=== PATIENT | male | born 1995 | race Caucasian/White ===

== ENCOUNTER 2021-03-27 19:37 | Emergency (ER) | payer BC, SELFPAY ==
--- NOTE | ~2021-03-27 | XR_ITS ---
EXAMINATION: XR CHEST CLINICAL INFORMATION: 25-year-old male with chest pain. COMPARISON: None TECHNIQUE: 2 views of the chest were obtained. FINDINGS: Cardiac silhouette is normal in size. The lungs are well aerated. There is no lobar consolidation. No pleural effusion or pneumothorax. No acute osseous abnormality. XR/XR chest 2V IMPRESSION: No acute pulmonary pathology.
--- NOTE | 2021-03-27 19:49 | ECG_ITS ---
Test Reason : CHEST PAIN Blood Pressure : / mmHG Vent. Rate : 066 BPM Atrial Rate : 066 BPM P-R Int : 116 ms QRS Dur : 114 ms QT Int : 396 ms P-R-T Axes : 058 087 061 degrees QTc Int : 415 ms Normal sinus rhythm with sinus arrhythmia Incomplete right bundle branch block Borderline ECG No previous ECGs available Referred By: Generic ED Physician Electronically Signed By:Augustus Fry
[2021-03-27 21:03] VITALS: BP 123/59; PULSE 69; RESP 18; TEMP 37.1; O2SAT 100; BMI 21.7
[2021-03-27 21:39] LABS: Basophils Percent Auto 0.4 % (0-2); Eosinophils Percent Auto 0.5 % (0-4); Hematocrit 45.3 % (42-52); Hemoglobin 15.3 g/dl (14.0-18.0); Imm Gran Abs Auto 0.03 X10*3/uL (0.00-0.03); Imm Gran Pct Auto 0.4 % (0.0-0.4); Lymphocytes Absolute Auto 2.1 X10*3/uL (1.2-4.9); Lymphocytes Percent Auto 25.3 % (20-40); MANUAL DIFF FLAG NO; Mean Corpuscular HGB Conc 33.8 g/dl (31.0-36.0); Mean Corpuscular Hemoglobin 30.3 pg (27.0-33.0); Mean Corpuscular Volume 89.7 fL (80-98); Mean Platelet Volume 9.7 fL (9.4-12.4); Monocytes Absolute Auto 0.7 X10*3/uL (0.1-1.2); Neutrophils Absolute Auto 5.4 X10*3/uL (2.0-8.3); Neutrophils Percent Auto 65.4 % (45-73); Platelet Count 246 X10*3/uL (160-400); Red Blood Count 5.05 X10*6/uL (4.60-5.80); Red Cell Distribution Width 12.3 % (11.0-16.0); White Blood Count 8.3 X10*3/uL (4.8-10.8)
[2021-03-27 21:59] LABS: Anion Gap 14 (12-20); Blood Urea Nitrogen 19 mg/dL (9-16); Calcium 9.5 mg/dL (8.4-10.2); Carbon Dioxide 25 mmol/L (22-29); Chloride 108 mmol/L (96-108); Creatinine Clr Calc Pharmacy 111.4; Estimated Glomerular Filt Rate > 60; Glucose Random 83 mg/dL (60-115); Potassium 3.7 mmol/L (3.3-5.1); Sodium 143 mmol/L (135-145)
[2021-03-27 22:07] LABS: Troponin-I High Sensitivity < 3.5 ng/L (<3.5-35.0)
--- NOTE | 2021-03-27 22:34 | ED_ITS ---
HPI - Chest Pain General Chief Complaint: Chest Pain Stated Complaint: chest pain Time Seen by Provider: 03/27/21 22:34 Source: patient Mode of arrival: ambulatory History of Present Illness HPI narrative: This is a 25-year-old male without significant past medical history who presents with 1 week of intermittent sharp left-sided chest pain that comes and goes rapidly and is not associated with deep inspiration, changes in position, movement. Patient denies any fevers, chills, sore throat, cough, smoking history, recent travel. Related Data Allergies Allergy/AdvReac Type Severity Reaction Status Date / Time No Known Allergies Allergy Verified 03/27/21 21:02 Review of Systems Review of Systems: Pertinent positives and negatives as stated in HPI 10 point review of systems otherwise negative. PMFSH Past Medical History Source: nursing notes reviewed Medical History Patient denies medical problems Social History Social History Advance Directives: No Physical Exam Vital Signs: Vital Signs: Last Vital Signs Temp 98.8 F 03/27/21 21:03 Pulse 69 03/27/21 21:03 Resp 18 03/27/21 21:03 BP 123/59 L 03/27/21 21:03 Pulse Ox 100 03/27/21 21:03 Body Mass Index 21.7 VITAL SIGNS: Reviewed. GENERAL: Well developed, well nourished, in no acute distress. HEAD: Normocephalic/atraumatic EYES: PERRLA, EOMIal OROPHARYNX: no oral lesions noted, posterior pharynx clear NECK: Supple, no adenopathy LUNGS: Normal breath sounds. No adventitious sounds or accessory muscle use. SpO2<100> CARDIOVASCULAR: Regular rate and rhythm without noted murmurs ABDOMEN: Soft, non-tender, non-distended with bowel sounds. NEUROLOGIC: Alert and oriented x 4. Course Course Course Narrative: 25-year-old male with history and clinical presentation consistent with likely costochondritis, muscle strain and review of all investigations negative for any acute findings. Results were discussed with patient bedside and he was discharged in stable condition. MDM - Chest Pain Lab Data Result diagrams: 03/27/21 21:33 03/27/21 21:33 Labs: Lab Results 03/27/21 03/27/2103/27/21 Range/Units 21:33 21:33 21:33 WBC 8.3 (4.8-10.8) X10*3/uL RBC 5.05 (4.60-5.80) X10*6/uL Hgb 15.3 (14.0-18.0) g/dl Hct 45.3 (42-52) % MCV 89.7 (80-98) fL MCH 30.3 (27.0-33.0) pg MCHC 33.8 (31.0-36.0) g/dl RDW 12.3 (11.0-16.0) % Plt Count 246 (160-400) X10*3/uL MPV 9.7 (9.4-12.4) fL Immature Gran % (Auto) 0.4 (0.0-0.4) % Neut % (Auto) 65.4 (45-73) % Lymph % (Auto) 25.3 (20-40) % [place] % (Auto) 8.0 (2-11) % Eos % (Auto) 0.5 (0-4) % Baso % (Auto) 0.4 (0-2) % Lymph # (Auto) 2.1 (1.2-4.9) X10*3/uL [place] # (Auto) 0.7 (0.1-1.2) X10*3/uL Eos # (Auto) 0.0 (0.0-0.4) X10*3/uL Baso # (Auto) 0.0 (0.0-0.2) X10*3/uL Abs Immat Gran (auto) 0.03 (0.00-0.03) X10*3/uL Absolute Neuts (auto) 5.4 (2.0-8.3) X10*3/uL Absolute Nucleated RBC 0.000 (0.0-0.012) X10*3/uL Nucleated RBC % (auto) 0.0 (0.0-0.2) /100WBC Sodium 143 (135-145) mmol/L Potassium 3.7 (3.3-5.1) mmol/L Chloride 108 (96-108) mmol/L Carbon Dioxide 25 (22-29) mmol/L Anion Gap 14 (12-20) BUN 19 H (9-16) mg/dL Creatinine 1.04 (0.5-1.4) mg/dL Estim Creat Clear Calc 111.4 Estimated GFR > 60 Random Glucose 83 (60-115) mg/dL Calcium 9.5 (8.4-10.2) mg/dL Troponin I High Sens < 3.5 (<3.5-35.0) ng/L ECG Data ECG #1: Attestation: I personally reviewed and interpreted this ECG as follows: Prior ECG tracings: not available for review Interpretation: Normal sinus rhythm, HR-66, no evidence of acute ischemia, incomplete RBBB, NV/QTC are within normal limits. Discharge Plan Discharge Clinical Impression: Atypical chest pain, Acute costochondritis, Muscle strain of anterior chest wall Patient Disposition: Home, Self-Care Instructions: Costochondritis (ED) Additional Instructions: Recommend using [id number] Tylenol/ibuprofen as needed for symptom relief. Follow-up with your primary care provider after you establish 1 within 2-3 days for further re-evaluation and outpatient management. Do not hesitate to return to the emergency room if you develop worsening symptoms. Referrals: Physician,None [Primary Care Provider] - 2 days
[2021-03-27 23:43] VITALS: BP 109/76; PULSE 75; RESP 17; O2SAT 100
[2021-03-27] MEDS: Ketorolac Tromethamine 15 MG/ML VIAL IM (23:49)
[2021-03-27] MEDS: Acetaminophen 325 MG TABLET 975 MG PO (23:49)
[2021-03-27] MEDS: Lidocaine 4 % Patch ADH..PATCH 1 PATCH TRANSDERMA (23:50)
== END 2021-03-27 23:56 | disposition home or self-care (01) ==
PROVIDERS: Emergency Provider Student in an Organized Health Care Education/Training Program
DX: R07.89 Other chest pain (principal); M94.0 Chondrocostal junction syndrome [Tietze]
CPT/HCPCS: 36415; 71046; 80048; 84484; 85025; 93005; 96372; 99284; J1885

== ENCOUNTER 2021-04-27 00:44 | Emergency (ER) | payer BC, SELFPAY ==
[2021-04-27 00:46] VITALS: BP 123/63; PULSE 64; RESP 18; TEMP 37; O2SAT 100; BMI 21.7
[2021-04-27 01:42] LABS: Glucose Urine UA NEG (NEG); Leukocyte Esterase Urine NEG (NEG); Nitrite Urine NEG (NEG); PH 6.5 (5.0-8.0); Specific Gravity - Urine 1.015 (1.005-1.025); Urine Blood NEG (NEG); Urine Ketones NEG (NEG); Urine Protein NEG (NEG-TRACE)
[2021-04-27 01:43] LABS: Appearance Urine CLEAR; Color Urine YELLOW
--- NOTE | 2021-04-27 02:19 | ED_ITS ---
HPI - General Adult General Chief complaint: Abdominal Pain Stated complaint: lower ABD pain Time Seen by Provider: 04/27/21 02:19 Source: patient Mode of arrival: ambulatory History of Present Illness HPI narrative: 25-year-old male without significant past medical history presents with complaints of mons pubis pain that he states extends along to the tip of his penis and does not affect erection/ejaculation. This discomfort has not been associated with any fever, chills, scrotal pain. In addition, patient states that he is having some pain at the base of his scrotum in between the scrotum and the anus towards the end of the day and states that he sits a lot at his job. Currently on self palpation patient states he is not having any further pain. Related Data Allergies Allergy/AdvReac Type Severity Reaction Status Date / Time No Known Allergies Allergy Verified 04/27/21 00:46 Review of Systems Review of Systems: Pertinent positives and negatives as stated in the HPI 10 review of systems is otherwise negative. PMFSH Past Medical History Source: nursing notes reviewed Medical History Patient denies medical problems Social History Social History Advance Directives: No Advance Directives Information Provided: No Physical Exam Vital Signs: Vital Signs: Last Vital Signs Temp 98.6 F 04/27/21 00:46 Pulse 68 04/27/21 02:34 Resp 17 04/27/21 02:34 BP 126/67 04/27/21 02:34 Pulse Ox 97 04/27/21 02:34 Body Mass Index 21.7 VITAL SIGNS: Reviewed. GENERAL: Well developed, well nourished, in no acute distress. HEAD: Normocephalic/atraumatic EYES: PERRLA, EOMI EARS: Ext canals without abnormality NOSE: Nares patent bilateral OROPHARYNX: no oral lesions noted, posterior pharynx clear LUNGS: Normal breath sounds. No adventitious sounds or accessory muscle use. SpO2<100> CARDIOVASCULAR: Regular rate and rhythm without noted murmurs ABDOMEN: Soft, non-tender, non-distended with bowel sounds. : [Solutions Development Analyst: Luís] on examination of the suprapubic/ mons pubis and perineal area there is no noted erythema / induration / masses fluctuance SKIN: Inspection of the skin reveals no rashes NEUROLOGIC: Alert and oriented x 4. Course Course Course Narrative: 25-year-old male with history and clinical presentation of unclear etiology but does not appear to be infectious in nature and neither based on history does not seem to affect normal function for the patient. Patient was instructed to use a donut for pressure relief while sitting for long periods of time and encouraged to follow up as scheduled with his primary care provider in the upcoming week patient was then discharged in stable condition. Medical Decision Making Lab Data Labs: Lab Results 04/27/21 Range/Units 01:33 Urine Color YELLOW Urine Appearance CLEAR Urine pH 6.5 (5.0-8.0) Ur Specific [place] 1.015 (1.005-1.025) Urine Protein NEG (NEG-TRACE) MG/DL Urine Glucose (UA) NEG (NEG) MG/DL Urine Ketones NEG (NEG) MG/DL Urine Blood NEG (NEG) Urine Nitrite NEG (NEG) Ur Leukocyte Esterase NEG (NEG) Discharge Plan Discharge Clinical Impression: Suprapubic pain Patient Disposition: Home, Self-Care Instructions: Abdominal Pain (ED) Additional Instructions: 1. Tylenol 1000 mg, orally, every 6 hours as needed for pain control. Do not exceed 4000 mg within 24 hours. 2. Ibuprofen 400 mg, orally with milk or food, every 6 hours as needed for pain control. Recommend using this in combination with the Tylenol for increased symptom relief. 3. Recommend using a donut for extended periods of time of sitting to help relieve some of the pressure in your scrotal area. Return to the ER for acute worsening of your symptoms. Referrals: Physician,None [Primary Care Provider] - 2 days Interventions: ED Discharge Assessment Last Done: 04/27/21 02:34 Discharge Date/Time: 04/27/21 02:35
[2021-04-27 02:34] VITALS: BP 126/67; PULSE 68; RESP 17; O2SAT 97
== END 2021-04-27 02:35 | disposition home or self-care (01) ==
PROVIDERS: Internal Medicine; Emergency Provider Student in an Organized Health Care Education/Training Program
DX: R10.30 Lower abdominal pain, unspecified (principal)
CPT/HCPCS: 81003; 99283

== ENCOUNTER 2024-08-11 09:52 | Outpatient (REF) | payer OTHER, SELFPAY ==
--- NOTE | ~2024-08-11 | US_ITS ---
EXAMINATION: US ABDOMEN COMPLETE CLINICAL INFORMATION: Abdominal pain. COMPARISON: None available. TECHNIQUE: Real-time imaging of the abdominal viscera. FINDINGS: PANCREAS: Normal. The visualized pancreatic head and body are normal in appearance. The remainder of the pancreas is obscured from visualization by the overlying bowel gas. ABDOMINAL AORTA: The proximal segment is nonaneurysmal. The mid and distal segments are secured by overlapping bowel gas. INFERIOR VENA CAVA: Visualized portions are normal. LIVER: Normal. The liver is normal in size. The liver contour is normal. Parenchymal echogenicity is normal. No focal hepatic lesion. There is no intrahepatic biliary duct dilatation seen. GALLBLADDER: Normal. The gallbladder is physiologically distended without evidence of stones, sludge, polyps, wall thickening or pericholecystic fluid. COMMON BILE DUCT: Normal in caliber measuring 0.2 cm in diameter. RIGHT KIDNEY: Normal. No hydronephrosis. No renal calculi or focal parenchymal lesions. The kidney measures 10.5 cm in maximum dimension. LEFT KIDNEY: Normal. No hydronephrosis. No renal calculi or focal parenchymal lesions. The kidney measures 11.7 cm in maximum dimension. SPLEEN: Normal. The spleen measures 10.9 cm in maximum dimension. FREE FLUID: None. US/US abdomen complete IMPRESSION: Unremarkable examination, with imaging of the pancreas and abdominal great vessels technically limited. Electronically signed by: Harjinder Garcia MD 09/07/2024 09:58 AM EST
== END 2024-08-11 09:53 | disposition home or self-care (01) ==
LOC: HO.US 09:52
PROVIDERS: PCP Internal Medicine; Visit Provider Internal Medicine
DX: R10.9 Unspecified abdominal pain (principal)
CPT/HCPCS: 76700

== ENCOUNTER 2024-10-13 09:29 | Day surgery (SDC) | payer OTHER, SELFPAY ==
--- OUTSIDE RECORDS SUMMARY | 2024-10-12 09:57 | XMS_ITS | Data Portability ---
Author Organization [facility], [address] Address [address] [place] [address] Assessment No assessment recorded. Plan of Treatment Reminders Order Date Submit Date Provider Last Modified By Organization Details Last Modified Time Details Appointments None recorded. Lab rapid flu (A+B) 2021 [email or web address] [address], [place], [address], 14:22:29 Referral None recorded. Procedures None recorded. Surgeries None recorded. Imaging None recorded. Medication Orders prednisone 20 mg tablet 2021 [facility] #[id number], [address] [place] [address], [address], 14:22:33 albuterol sulfate HFA 90 mcg/actuati on aerosol inhaler [id number] [address] [place] [address], [address], 14:22:33 benzonatate 100 mg capsule 2021 [id number], [address] [place] [address], [address], 14:22:33 doxycycline hyclate 100 mg capsule 2021 [facility] #[id number], [address] [place] [address], [address], 14:22:34 Patient TargetsNo targets recorded. Patient Instructions Encounter Date Encounter Id Patient Instructions Last Modified By Organization Details Last Modified Time 10/13/2022 [id number] Take over the counter medications such as ibuprofen or tylenol according to package instructions. Do not exceed maximum dosage for age/weight. Do not take anything that you might be allergic to. Make sure to consult us or your primary care physician if you take medications such as blood thinners or blood pressure medications before taking over the counter medications. The best over the counter cough medication for people with high blood pressure is Coricidin, which is available at any pharmacy without a prescription. Drink plenty of water. Go to the nearest emergency department if you develop ANY new or worsening symptoms. Call 911 if you feel that you are having a medical emergency. Call your primary care physician today to set up a follow up appointment within one week. Not following up with your primary care physician may result in adverse health conditions. If you have any questions or concerns, please call us. sveta Not available 10/13/2022 14:22:34 Reason for Referral None Reported. Results Created Date Observation Date Name Description Value Unit Range Abnormal Flag Note LastModifiedBy Organization Detail LastModifiedTime 10/13/20 22 10/13/2022 rapid flu (A+B) Unknown Analyte Normal = Negati ve Not Available _[address], [address], 10/13/2022 13:51:02 10/13/20 22 10/13/2022 rapid flu (A+B) Unknown Analyte Normal = Negati ve Not Available _[facility], [address], 10/13/2022 13:51:02 10/13/20 22 10/13/2022 rapid flu (A+B) Unknown Analyte negati ve Not Available [facility] [address], [address], 10/13/2022 13:51:02 10/13/20 22 10/13/2022 rapid flu (A+B) Unknown Analyte negati ve Not Available [address] [place] [address], [place], [address], 10/13/2022 13:51:02 Result Notes None recorded. Problems No Known Problems Medical Equipment None Reported. Allergies No known drug allergies Medications Name Sig Start Date Stop Date Status Note LastModified by Organization Details LastModified Time doxycycline hyclate 100 mg capsule TAKE 1 CAPSULE BY MOUTH TWICE A DAY FOR 10 DAYS active Not Available Not Available No t Available prednisone 20 mg tablet TAKE 2 TABLETS BY MOUTH EVERY DAY FOR 5 DAYS active Not Available Not Available No t Available benzonatate 100 mg capsule TAKE 1 CAPSULE BY MOUTH THREE TIMES A DAY active Not Available Not Available No t Available albuterol sulfate HFA 90 mcg/actuation aerosol inhaler INHALE 2 PUFFS EVERY 6 HOURS active Not Available Not Available No t Available Vitals Date Recorded Body height Body mass index (BMI) Body weight Body temperature Respiratory rate Oxygen saturation Oxygen saturation in Arterial blood by Pulse oximetry Heart rate Systolic blood pressure Diastolic blood pressure Provider Name and Address Organization Details Last Updated DateTime 182.88 cm 24.4 kg/m2 96048.6 3 g 97.8 [degF] 18 /min 97 % 97 % 74 /min 117 mm[Hg] 71 mm[Hg] GERARD Dominique PA - [facility] 13:54:33 Social History Question Answer Notes LastModified by Organizat ion Details LastModified Time Tobacco Smoking Status Never Smoker GERARD ramirez PA - [facility] 10/13/2022 13:49:17 What Is Your Level Of Alcohol Consumption? Occasional Information not available 10/13/2022 What Is Your Water Source? City Information not available 10/13/2022 What Is Your Heat Source? Gas Information not available 10/13/2022 Have You Had Direct Contact, Or Contact During Intimacy, With Monkeypox Rash, Scabs, Or Body Fluids From A Person With Monkeypox? No Information not available 10/13/2022 Do You Use Any Illicit Or Recreational Drugs? No Information not available 10/13/2022 Have You Recently Traveled Abroad? No Information not available 10/13/2022 Do You Or Have You Ever Used Any Other Forms Of Tobacco Or Nicotine? No Information not available 10/13/2022 Sex: Unknown Functional Status None recorded. Mental Status None recorded. Family History Relationship Description Onset Age of this Age Resolved Age Notes LastModified by Organization Details LastModified Time Father No current problems or disability Not available 13:49:06 Mother No current problems or disability Not available 13:49:06 Medical History No medical history recorded. Past Encounters Encounter ID Performer Location Encounter Start Date Encounter Closed Date Diagnosis/Indication Diagnosis SNOMED-CT Code Diagnosis ICD10 Code [id number] [address] [place] [address] 09/17/2020 08:17:34 09/17/2020 09:35:29 [id number] [address] [place] [address] 05/27/2020 13:11:11 05/27/2020 14:26:46 [id number] [address] [place] [address] 04/20/2021 13:29:41 04/20/2021 15:40:34 [id number] [address] [place] [address] 03/27/2021 18:45:50 03/27/2021 20:34:02 [id number] [facility] Sandoval [address] [place] [address] 10/13/2022 12:09:05 10/13/2022 14:23:24 Sinusitis 12351822 J32.9 Cough 14597742 R05.9 Health Concerns Section Related Observation LastModified by Organization Detai ls LastModified Time None Recorded Concern Status LastModified by Organization Details LastModified Time None Recorded Advance Directives Directive None Recorded Payers Encounter Date Sequence Insurance Name Policy Number Policy Boggs Covered Member ID Boggs Member ID Guarantor Name 05/27/2020 1 [place] [facility] [id number] Wily N Flachs [id number] Tarik Flachs 09/17/2020 1 [place] [facility] [id number] Wily N Flachs [id number] Tarik Flachs 03/27/2021 1 [place] [facility] [id number] Wily N Flachs [id number] Tarik Flachs 04/20/2021 1 [place] [facility] [id number] Wily N Flachs [id number] Tarik Flachs 10/13/2022 1 [facility] [id number] Tarik Flachs [id number] Tarik Flachs
[2024-10-13 10:03] VITALS: BMI 23.9
--- NOTE | 2024-10-13 10:27 | HO.ANESPROP2 ---
HPI - Anesthesia Eval Consult details Narrative: for upper gi PMFSH Past Medical History Medical History Patient denies medical problems Family History Family history of problems with anesthesia: No Surgical History History of Problems with Anesthesia: No Social History Social History Are you a primary social worker palliative care to a significant other at home: No Do you presently have visiting nurse or other home services: No Patient Tobacco Use Status: Never used Tobacco Use of substances other than those prescribed or required for medical reasons: No Have you been hit, kicked, punched, or otherwise hurt by someone within the past year? If so, by whom?: No Are you DNR?: No Advance Directives: No Advance Directives Information Provided: Yes Nutrition Risks: No Nutritional Risk Poor oral hygiene: No Meds Allergies Allergy/AdvReac Type Severity Reaction Status Date / Time No Known Allergies Allergy Verified 10/13/24 10:01 Exam Height,Weight and Vital Signs: Height 6 ft Weight 79.832 kg Airway Mallampati Class: II TM Dist: >3cm Neck ROM: Full Heart: rrr Lungs: ctaq Assessment and Plan Assessment Anesthesia Assessment: Anesthesia Plan Discussed Final Anesthetic Review Family History of Problems with Anesthesia: No History of Problems with Anesthesia: No NPO: Yes ASA Class: I Final Preanesthetic Review: No Changes in Pt Med Stat, Meds/Allgs Chart Reviewed, Consent Obtained/Reviewed and Anes Risks/Benef Reviewed Patient Risk: Low Procedure Risk: Low Anesthetic Plan Anesthetic Plan: MAC: Disposition: Standard PACU
[2024-10-13] MEDS: Lactated Ringers 1,000 ML 80 ML IVCONT (10:38)
[2024-10-13 12:02] VITALS: BP 107/55; PULSE 60; RESP 16; TEMP 36.8; O2SAT 99
[2024-10-13 12:17] VITALS: BP 100/62; PULSE 60; RESP 16; TEMP 36.6; O2SAT 100
--- NOTE | 2024-10-13 13:27 | OP_ITS ---
DATE OF SERVICE: 10/13/2024 SURGEON: Isaiah Morales MD INDICATIONS: The patient presents for evaluation of gastroesophageal reflux. Full consent has been obtained from him for this, including risks of bleeding and perforation. PREOPERATIVE DIAGNOSIS: POSTOPERATIVE DIAGNOSIS: PROCEDURE PERFORMED: Esophagogastroduodenoscopy with biopsies. ESTIMATED BLOOD LOSS: COMPLICATIONS: ANESTHESIA: Monitored anesthesia care. ASSISTANTS: SPECIMENS: PREOPERATIVE DIAGNOSES: Gastroesophageal reflux. POSTOPERATIVE DIAGNOSES: Gastroesophageal reflux, minimal hiatal hernia, and minimal changes of reflux. DESCRIPTION OF PROCEDURE: The patient was placed in the left lateral decubitus position. The Olympus video gastroscope was passed in the posterior oropharynx and upper esophagus under direct vision. The scope was passed slowly to the distal esophagus. The gastroesophageal junction appeared at 40 cm. There was no sign of any esophagitis nor any Blakely's mucosa. There was no significant irregularity at the EG junction. The scope entered the stomach. There may have been a minimal, if any, hiatal hernia. The scope was advanced to the pylorus and the duodenum was cannulated to the descending portion. The duodenum including the bulb appeared normal without mass or ulceration. The scope was withdrawn back in the stomach. The gastric antrum and body appeared normal with good peristalsis. The scope was retroflexed visualizing the proximal stomach carefully, which appeared normal, without any sign of mass or ulceration. The scope was straightened and withdrawn back to the esophagus. The EG junction appeared basically normal. Biopsies were obtained. Proximal to this, the esophageal mucosa appeared normal. The scope was withdrawn from the patient. He tolerated the procedure well and was returned to the recovery area in stable condition. IMPRESSION: Minimal changes of reflux and hiatal hernia. PLAN: The results of the biopsies will be checked. His history seems consistent with that of some nocturnal reflux given that most of his symptoms seem to be in the morning when he awakens. He is not having any worrisome symptoms. I did review with him the need to try to eat a healthy diet with less fast food and to try not to eat for several hours before bedtime. He has been on a PPI in the past, which gave him some initial relief but eventually his symptoms seem to have returned despite remaining on it. Given the minimal findings on the endoscopy and his history, I am going to recommend that he try a dose of 40 mg famotidine each evening a little before bedtime to see if that can help prevent his nighttime symptoms. Hopefully by changing his diet and not eating close to bedtime will help as well. I will plan to see him in followup as well. This has been discussed with his father. MD DANIA Davidson/KYLEIGH / [id number] MTDD
--- NOTE | 2024-10-13 20:04 | P.BOP_ITS ---
Brief Operative Note Date of Service: 10/13/24 Pre-op diagnosis: GERD Post-op diagnosis: same Procedure: EGD with biopsies Surgeon: Isaiah Morales MD Was an Enterprise Application Analyst used for this Procedure?: No Estimated blood loss (mL): 2.0 Pathology: other (A. EG Junction at 40cm) Condition: stable Disposition: PACU
== END 2024-10-13 13:01 | disposition home or self-care (01) ==
PROVIDERS: PCP Internal Medicine; Visit Provider Internal Medicine
PROC: 0DJ08ZZ Inspection of Upper Intestinal Tract, Via Natural or Artificial Opening Endoscopic (ICD-10-PCS; CPT 43235; principal; 2024-10-13 11:10)
DX: K21.9 Gastro-esophageal reflux disease without esophagitis (principal); K44.9 Diaphragmatic hernia without obstruction or gangrene
CPT/HCPCS: 43239; 88305; 88313; J2704